=== PATIENT | female | born 1970 | race Caucasian/White ===

== ENCOUNTER 2023-02-06 19:59 | Emergency (ER) | payer OTHER ==
[2023-02-06 21:10] LABS: #Basophils 0.1 thou/uL (0.0-0.2); #Eosinphils 0.3 thou/uL (0.0-0.7); #Lymphocytes 2.1 thou/uL (1.20-3.40); #Monocytes 0.7 thou/uL (0.11-0.59); #Neutrophils 8.9 thou/uL (1.40-6.50); %Basophils 0.6 % (0.0-1.0); %Eosinophils 2.8 % (0.0-10.0); %Lymphocytes 17.3 % (21.0-51.0); %Monocytes 5.5 % (0.0-10.0); %Neutrophils 73.9 % (42.0-75.0); Hemoglobin 12.3 g/dL (12.0-16.0); Mean Corpuscular HGB CONC 32.8 g/dL (32.0-36.0); Mean Corpuscular Hemoglobin 28.6 pg (27.0-31.0); Mean Corpuscular Volume 87.2 fl (78.0-98.0); Mean Platelet Volume 6.2 fL (7.4-10.4); Platelet Count 369 10x3/uL (130-400); RBC Distribution Width 13.4 % (11.5-14.5); Red Blood Cell (RBC) Count 4.28 mill/uL (4.20-5.40)
[2023-02-06 21:31] LABS: ALT (SGPT) 18 U/L (8-55); AST (SGOT) 24 U/L (5-34); Albumin 4.3 g/dL (3.5-5.0); Alkaline Phosphatase 107 U/L (40-110); Anion Gap 18 mmol/L (10-20); BUN (Urea Nitrogen) 14 mg/dL (9.8-20.1); Bilirubin, Total 0.4 mg/dL (0.2-1.2); Calc. Creatinine Clearance 0 mL/min (70-130); Calcium 10.1 mg/dL (7.8-10.44); Carbon Dioxide 24 mmol/L (22-29); Chloride 101 mmol/L (98-107); Estimated GFR 67; Globulin 4.3 g/dL (2.4-3.5); Glucose 135 mg/dL (70-105); Lipase 49 U/L (8-78); Potassium 4.6 mmol/L (3.5-5.1); Protein, Total 8.6 g/dL (6.0-8.3); Sodium 138 mmol/L (136-145)
[2023-02-06] MEDS ORDERED: Morphine 4 MG/ML VIAL ONE (21:55)
== END 2023-02-06 22:58 | disposition home or self-care (01) ==
LOC: ERS 19:59
DX: K43.9 Ventral hernia without obstruction or gangrene (principal); I10 Essential (primary) hypertension; E03.9 Hypothyroidism, unspecified
CPT/HCPCS: 36415; 74177; 80053; 83605; 83690; 85025; 87040; 96361; 96374; J2270

== ENCOUNTER 2023-11-05 11:59 | Outpatient (CLI) | payer OTHER | END 2023-11-05 12:00 | disposition home or self-care (01) | LOC: BICRAD 11:59 | PROVIDERS: ATTEND Student in an Organized Health Care Education/Training Program | DX: M25.551 Pain in right hip (principal); M25.552 Pain in left hip ==